=== PATIENT | male | born 1980 | race Two or more races ===

== ENCOUNTER → 2017-02-06 | Outpatient (CLI) | payer OTHER ==
[~2017-02-06] MED LIST: CIPRO PO; CLARITIN5 MG PO; FLAGYL PO; LORTAB 7.5-5001 TAB PO; REGLAN10 MG PO; VIBRAMYCIN100 M1 PO
--- NOTE | ~2017-02-06 | CR265 ---
[facility] A Service [facility] RADIOLOGY TEXT RESULTS PATIENT: JOHN ALBERTO LOCATION: [facility] : 84 UNIT #: [id number] AGE: [address]: Betty Hsu MD SEX: M ORDER DR: [id number] [address] [id number] O MR#: [id number] Acc #: [id number] NAME: JOHN ALBERTO : 1980 SEX: M STUDY DATE/TIME: 02/06/2017 8:01 UNIT: [facility] ROOM: STUDY DESCRIPTION: CR Upper GI Series Wo [facility] Attending Physician: Kaye Hsu M.D. Referring Physician: Kaye Hsu M.D. Ordering Physician: Kaye Hsu M.D. Primary Care Physician: Kaye Hsu M.D. MEDICAL IMAGING REPORT This report is preliminary unless electronic signature is present EXAM Upper GI series. INDICATIONS Gastroesophageal reflux disease for a couple of years. The fluoroscopy time was 1.9 minutes. 17 fluoroscopic images were taken. COMPARISON No comparisons. FINDINGS Evaluation of the esophagus is within normal limits. There is no evidence for hiatal hernia, stricture or reflux. Evaluation of the stomach is within normal limits. The fold pattern in the stomach is normal. There is no fold thickening. The duodenum is within normal limits. IMPRESSION Normal upper GI series. Dictated by... Kamlesh Russell M.D. THIS IS AN ELECTRONICALLY VERIFIED REPORT Kamlesh Russell M.D. at 02/07/2017 7:15 AM JOSE/andrzej TD: 02/06/2017 22:32 JOB #: [id number] [facility] A Service [facility] RADIOLOGY TEXT RESULTS PATIENT: JOHN ALBERTO LOCATION: [facility] : 84 UNIT #: [id number] AGE: [address]: Betty Hsu MD SEX: M ORDER DR: MEDICAL IMAGING REPORT Page 1 of 1 COPY
== END | disposition home or self-care (01) ==
LOC: CRAD 07:38
DX: K21.9 Gastro-esophageal reflux disease without esophagitis (principal); K29.70 Gastritis, unspecified, without bleeding
CPT/HCPCS: 74240